=== PATIENT | male | born 1995 | race African-American/Black ===

== ENCOUNTER 2023-05-18 11:09 | Emergency (ER) | payer SELFPAY ==
[~2023-05-18] VITALS: Ht 180.3 cm; Wt 132.2 kg
[2023-05-18 11:11] VITALS: BP 134/72; TEMP 98.5; O2SAT 97
[2023-05-18] MEDS ORDERED: antibiotic PO (11:29)
[2023-05-18] MEDS ORDERED: VENTAER INH (11:29)
[2023-05-18] MEDS ORDERED: STEROIDS PO (11:29)
[2023-05-18] MEDS ORDERED: ISOVUE-370 76% 100ML VIAL As Ordered ONE (15:00)
[2023-05-18 15:11] LABS: BASO % 0.2 % (0.0-1.0); EOS % 0.1 % (0.0-3.0); HEMATOCRIT 47.3 % (42.0-52.0); LYMPH # 2.4 10^3/uL (1.5-5.0); LYMPH % 20.4 % (24.0-44.0); MEAN CORPUSCULAR HEMOGLOBIN 29.3 pg (27.0-33.0); MEAN CORPUSCULAR HGB CONC 33.8 g/dl (32.0-36.5); MEAN CORPUSCULAR VOLUME 86.6 fl (80.0-96.0); MONO # 0.9 10^3/uL (0.0-0.8); MONO % 7.7 % (2.0-8.0); NEUTROPHILS # 8.4 10^3/uL (1.5-8.5); PLATELET COUNT, AUTOMATED 274 10^3/uL (150-450); RED BLOOD COUNT 5.46 10^6/uL (4.30-6.10); WHITE BLOOD COUNT 11.8 10^3/uL (4.0-10.0)
[2023-05-18 15:30] LABS: INR 1.03; PROTHROMBIN TIME 13.2 SECONDS (12.5-14.5)
[2023-05-18 15:31] LABS: PARTIAL THROMBOPLASTIN TIME 25.7 SECONDS (24.8-34.2)
[2023-05-18 15:40] LABS: CK-MB VALUE MASS < 1.0 NG/ML (<3.6)
[2023-05-18 16:09] LABS: HIV 1&2 SCREEN NEGATIVE (NEGATIVE)
[2023-05-18 16:10] LABS: CPK CREATINE PHOSPHOKINASE 545 U/L (46-171); MB/CK RELATIVE INDEX 0.18 (< OR =4)
== END 2023-05-18 16:18 | disposition home or self-care (01) ==
LOC: M ED 11:09
DX: J40 Bronchitis, not specified as acute or chronic (principal); Z11.52 Encounter for screening for COVID-19; F17.290 Nicotine dependence, other tobacco product, uncomplicated
CPT/HCPCS: 36415; 71046; 71275; 80047; 82550; 82553; 84484; 85025; 85610; 85730; 87389; 87486; 87581; 87633; 87798; 93005; 99284; Q9967